=== PATIENT | male | born 1945 | race African-American/Black ===

== ENCOUNTER → 2016-08-23 | Outpatient (CLI) | payer OTHER ==
--- NOTE | ~2016-08-23 | 2DMMODE ---
[facility] [place] [employer] [place] [address] 2 D/M-MODE ECHOCARDIOGRAM Name: SUKHI VILLA Room #: REG CL [facility]#: [id number] Admission: 08/23/16 Attend Phys: Physician not on s Discharge: Date of : 43 Date of Service: 08/23/16 1016 Report #: [id number] THIS REPORT FOR: //name// APPROVED REPORT Study performed: 08/23/2016 08:23:08 EXAM: Comprehensive 2D, Doppler, and color-flow Echocardiogram Patient Location: Out-Patient Blood Pressure: 146/98 mmHg HR: 58 bpm Rhythm: NSR Other Information Study Quality: Adequate Indications Dyspnea Hx: HTN, HLP, DM, obesity 2D Dimensions RVDd: 37.02 mm LVEF(%): 55.17 (>50%) IVSd: 12.83 (7-11mm) LVOT Diam: 20.75 (18-24mm) LVDd: 51.44 mm PWd: 12.61 (7-11mm) Ascending Aorta: 36.51 mm LVDs: 36.59 (25-40mm) Aortic Root: 32.07 mm Robins's LVEF: 55.17 % Volumes Left Atrial Volume (Systole) Single Plane 4CH: 54.08 mL Single Plane 2CH: 63.57 mL LA ESV Index: 28.00 mL/m2 Aortic Valve AoV Peak Matt.: 1.94 m/s AO Peak Gr.: 15.05 mmHg LV Max P.24 mmHg LV Max: 1.03 m/s Mitral Valve MV PHT: 52.23 ms MV E Max Matt.: 1.04 m/s E/A Ratio: 0.9 [facility] [place] [address] 2 D/M-MODE ECHOCARDIOGRAM Name: SUKHI VILLA Room #: REG COUNT INCLUDES THE [facility]#: [id number] Admission: 08/23/16 Attend Phys: Physician not on s Discharge: Date of : 43 Date of Service: 08/23/16 1016 Report #: [id number] MV A Matt.: 1.21 m/s MV Decel. Time: 180.09 ms Pulmonary Valve PV Peak Matt.: 0.92 m/s PV Peak Gr.: 3.41 mmHg Tricuspid Valve TR Peak Matt.: 1.73 m/s RAP Estimate: 10.00 mmHg TR Peak Gr.: 11.91 mmHg RVSP: 27.00 mmHg Left Ventricle The left ventricle is normal size. There is normal LV segmental wall motion. Mild concentric left ventricular hypertrophy. Left ventricular systolic function is normal. LVEF is 60%. Grade I - abnormal relaxation pattern. Right Ventricle The right ventricle is normal size. The right ventricular systolic function is normal. Atria The left atrium size is normal. The right atrium size is normal. Aortic Valve Aortic valve is mildly sclerotic. No aortic regurgitation. There is no aortic valvular stenosis. Mitral Valve The mitral valve is normal in structure. Mild mitral regurgitation. Tricuspid Valve The tricuspid valve is normal in structure. There is trace tricuspid regurgitation. The right atrial pressure is estimated at 10 mmHg. Estimated PAP is 27mmHg. Pulmonic Valve The pulmonary valve is normal in structure. Trace pulmonic regurgitation. Great Vessels The aortic root is normal in size. The ascending aorta is normal in size. IVC is normal in size and collapses >50% with inspiration. Pericardium [facility] [place] [employer] [place] [address] 2 D/M-MODE ECHOCARDIOGRAM Name: SUKHI VILLA Room #: REG CL [facility]#: [id number] Admission: 08/23/16 Attend Phys: Physician not on s Discharge: Date of : 43 Date of Service: 08/23/16 1016 Report #: [id number] Trace pericardial effusion <Conclusion> Left ventricular systolic function is normal. There is normal LV segmental wall motion. LVEF 60%. Grade I diastolic dysfunction Aortic valve is mildly sclerotic. No aortic regurgitation or stenosis. The mitral valve is normal in structure. Mild mitral regurgitation. Pulmonary artery pressure could not be reliably ascertained Trace pericardial effusion <ELECTRONICALLY SIGNED> By: Zurdo Solomon MD, FACC 08/23/16 1016 1016 1016 Zurdo Solomon MD, FACC /INF
== END ==
LOC: CV 08:33
DX: R06.02 Shortness of breath (principal)